=== PATIENT | male | born 1935 | race Caucasian/White ===

== ENCOUNTER 2021-12-21 20:54 | Emergency (ER) | payer MEDICARE, BC ==
[~2021-12-21] VITALS: Ht 177.8 cm; Wt 86.0 kg
[2021-12-21] VITALS (8 sets, daily range): BP systolic 136–148; BP diastolic 48–69
[~2021-12-21 20:54] MED LIST: [UNRECOGNIZED DRUG - REMARK]
[2021-12-21 21:20] LABS: IMMATURE GRANULOCYTES 0.2 % (0.0-5.0); MEAN CELL VOLUME 94.6 fL CALC (80.0-100.0); MEAN CORPUSCULAR HGB 31.5 pG CALC (26.0-32.0); MEAN CORPUSCULAR HGB CONC 33.3 g/dL CAL (32.0-36.0); NEUT# 5.55 thou/uL (1.82-7.42); RED BLOOD COUNT 3.87 mill/uL (4.70-6.10); RED CELL DISTRI WIDTH 12.8 % (11.5-15.5)
[2021-12-21 21:22] LABS: HEMATOCRIT 36.6 % (39.0-50.0); HEMOGLOBIN 12.2 g/dl (14.0-18.0)
[2021-12-21] MEDS ORDERED: ATORVASTATIN CA40 MG PO (21:30)
[2021-12-21 21:31] LABS: ALBUMIN 3.6 g/dL (3.2-5.0); ALKALINE PHOSPHATASE 65 u/l (38-126); ANION GAP 9 (6-22 (CALC)); BUN 13 mg/dL (8-23); BUN/CREATININE RATIO 13 (12-20 (CALC)); CARBON DIOXIDE 27 mmol/l (22-30); CHLORIDE 106 mmol/l (95-108); GFR FOR AFR.AMER. > 60 ML/MIN (>=60 (CALC)); GFR OTHER RACES > 60 ML/MIN (>=60 (CALC)); POTASSIUM 3.8 mmol/l (3.5-5.1); SGOT/AST 30 u/l (19-48); SODIUM 139 mmol/l (137-146); TOTAL PROTEIN 6.5 g/dL (6.3-8.2)
[2021-12-21] MEDS ORDERED: ASPIRIN 81 LOW81 MG (21:31)
[2021-12-21] MEDS ORDERED: NORVASC5 M1 PO (21:31)
[2021-12-21 21:32] LABS: BILIRUBIN, TOTAL 0.4 mg/dL (0.0-1.4)
[2021-12-21] MEDS ORDERED: OMEPRAZOLE20 MG PO (21:32)
[2021-12-21] MEDS ORDERED: ALTACE10 MG PO (21:32)
[2021-12-21] MEDS ORDERED: METOPROLOL SUCC50 MG PO (21:33)
[2021-12-21] MEDS ORDERED: CYANOCOBAL1000 MCG/M (21:34)
[2021-12-21 21:42] LABS: MYOGLOBIN 90 ng/mL (0 - 121)
[2021-12-21 23:02] LABS: URINE BILIRUBIN - DIPSTICK NEGATIVE (NEGATIVE); URINE BLOOD DIPSTICK NEGATIVE (NEGATIVE); URINE COLOR YELLOW; URINE GLUCOSE - DIPSTICK NEGATIVE (NEGATIVE); URINE KETONE NEGATIVE (NEGATIVE); URINE LEUK ESTERASE NEGATIVE (NEGATIVE); URINE PH 6.5 (4.5-8.0); URINE PROTEIN - DIPSTICK NEGATIVE (NEG-TRACE); URINE UROBILINOGEN - DIPSTICK 0.2 E.U./dL (0.2)
[2021-12-21 23:03] LABS: URINE NITRITE - DIPSTICK NEGATIVE (Negative)
== END 2021-12-21 23:18 | disposition home or self-care (01) ==
LOC: ED 20:54
PROVIDERS: Family Medicine
DX: R55 Syncope and collapse (principal); I10 Essential (primary) hypertension; Z95.0 Presence of cardiac pacemaker; Z20.822 Contact with and (suspected) exposure to COVID-19